=== PATIENT | female | born 1955 | race Caucasian/White ===

== ENCOUNTER → 2016-06-02 | Outpatient (REF) | payer MEDICARE, OTHER ==
[2016-06-02 16:24] LABS: BASOPHILS % (AUTO) 1 % (0-2); EOSINOPHILS # (AUTO) 0.3 10^3uL; EOSINOPHILS % (AUTO) 5 % (0-4); LYMPHOCYTES # (AUTO) 1.5 X10^3; MEAN CORPUSCULAR HEMOGLOBIN 27.9 PG (26.0-34.0); MEAN CORPUSCULAR HGB CONC 33.2 g/dL (31.0-37.0); MEAN CORPUSCULAR VOLUME 84 FL (80-100); MEAN PLATELET VOLUME 10.5 FL (6.0-9.5); MONOCYTES # (AUTO) 0.9 X10^3; MONOCYTES % (AUTO) 14 % (3-11); NEUTROPHILS # (AUTO) 3.6 X10^3; NEUTROPHILS % (AUTO) 56 % (51-67); PLATELET COUNT 218 10^3uL (150-450); WHITE BLOOD COUNT 6.37 10^3uL (4.0-11.0)
[2016-06-02 16:47] LABS: ALBUMIN 3.8 g/dL (3.4-5.0); ANION GAP 14.6 MEQ/L (3-15)
== END ==
LOC: LAB 15:37
PROVIDERS: ATTEND Family Medicine
DX: C34.31 Malignant neoplasm of lower lobe, right bronchus or lung (principal); R74.8 Abnormal levels of other serum enzymes
CPT/HCPCS: 80053; 82977; 85025

== ENCOUNTER → 2016-09-18 | Outpatient (CLI) | payer MEDICARE, OTHER ==
[~2016-09-18] MED LIST: ALB0.5V INH; ALBU8.5H2 INH; ASP81CT PO; ATOR10TA PO; BUDE1AMP INH; CA C1TAB66 PO; CITA40TA5 PO; CPR500T PO; FNT25TD TD; FOLI1TAB7 PO; FORM20VI IH; HYDR-3811 PO; IBUP-1096 PO; LEVO112T4 PO; LEVO750T39 PO; MAGIC MOUTHWASH PO; MIDO2.5T PO; MIRT15TA98 PO; OMEP20CA12 PO; ONDA-51 PO; ONDAN4ODT PO; PREG100C2 PO; PREG50CA2 PO; SCOP1PAT10 TD; SERT50TA PO; SUCR1ORA PO; TIZA4CAP6 PO
--- NOTE | 2016-09-18 11:44 | Diagnostic Imaging Report ---
INDICATION: Cough. Acute dyspnea. History of squamous cell carcinoma. Comparison with 05/02/2016. FINDINGS: There has been development of consolidated infiltrate in the right lower lobe both along the medial basilar segment and the posterior superior segment. Severe obstructive interstitial lung disease again noted bilaterally. The heart is upper limits of normal. Apical bullous emphysematous changes are present. No evidence of pneumothorax. No pleural effusion. Hilar fullness again noted on the right. IMPRESSION: 1. Severe obstructive interstitial lung disease with fullness in right hilum. 2. There does appear to be some acute infiltrate in the right lower lobe since previous exam. 3. No evidence of pneumothorax or pleural effusion. Dictated by: Dictated on workstation # [id number]
== END ==
LOC: RAD 09:49
PROVIDERS: ATTEND Family Medicine
DX: R06.02 Shortness of breath (principal); R05 Cough; C34.31 Malignant neoplasm of lower lobe, right bronchus or lung
CPT/HCPCS: 71020

== ENCOUNTER → 2016-09-18 | Outpatient (REF) | payer MEDICARE, OTHER ==
[2016-09-18 09:57] LABS: BASOPHILS % (AUTO) 0 % (0-2); EOSINOPHILS % (AUTO) 0 % (0-4); LYMPHOCYTES # (AUTO) 1.4 X10^3; MEAN CORPUSCULAR HEMOGLOBIN 27.4 PG (26.0-34.0); MEAN CORPUSCULAR HGB CONC 33.1 g/dL (31.0-37.0); MEAN CORPUSCULAR VOLUME 83 FL (80-100); MEAN PLATELET VOLUME 9.7 FL (6.0-9.5); MONOCYTES # (AUTO) 0.9 X10^3; MONOCYTES % (AUTO) 9 % (3-11); NEUTROPHILS # (AUTO) 8.5 X10^3; NEUTROPHILS % (AUTO) 78 % (51-67); PLATELET COUNT 288 10^3uL (150-450); WHITE BLOOD COUNT 10.87 10^3uL (4.0-11.0)
[2016-09-18 10:05] LABS: ALBUMIN 3.6 g/dL (3.4-5.0); CALCULATED IONIZED CALCIUM 4.1 mg/dL (3.8-4.6); TOTAL PROTEIN 6.8 g/dL (6.4-8.5)
[2016-09-18 10:06] LABS: ANION GAP 14.9 MEQ/L (3-15)
== END ==
LOC: LAB 09:51
PROVIDERS: ATTEND Family Medicine
DX: R06.02 Shortness of breath (principal); R05 Cough; C34.31 Malignant neoplasm of lower lobe, right bronchus or lung
CPT/HCPCS: 80053; 85025

== ENCOUNTER → 2016-09-25 | Outpatient (CLI) | payer MEDICARE, OTHER ==
--- NOTE | 2016-09-25 08:53 | Diagnostic Imaging Report ---
PROCEDURE: MR imaging of the brain with and without contrast. TECHNIQUE: Multiplanar, multisequence MR imaging of the brain was performed with and without contrast. INDICATION: Lung cancer. Correlation is made with a prior MRI from June 06, 2016. FINDINGS: There are prior operative changes of a left frontal craniotomy with a previous left frontal mass resection. When compared to the most recent examination, the resection cavity has decreased in size. There is T1 hyperintensity demonstrated within the resection cavity as well as some susceptibility on the gradient images. Allowing for the T1 hyperintensity, there is no evidence to suggest significant nodular enhancement within the resection cavity itself. There is again some linear enhancement about the margin to the prior resection and some mild dural thickening. A small degree of T2 hyperintense signal remains within the white matter about the prior resection cavity. There is no evidence of intracranial mass effect or shift. There is no hydrocephalus. No new intracranial lesion is evident on the postcontrast exam. No new regions of vasogenic edema demonstrated. The diffusion series demonstrates no evidence of restriction to suggest acute ischemia. There is no acute hemorrhage. There is no abnormal extra-axial fluid collection. Pituitary gland and pineal region are unremarkable. Posterior fossa remains unremarkable. Some trace mucosal thickening within the mastoids. There is small mucus retention cyst in left maxillary sinus. Orbital contents are unremarkable. Expected arterial and dural venous sinus flow voids appear preserved. IMPRESSION: 1. Previous operative changes of left frontal craniotomy with prior resection of a left frontal mass. The resection cavity is diminished in size when compared to the prior examination and there is also decreased T2 signal within the left frontal lobe compared to the preoperative MRI. Allowing for intrinsic T1 hyperintensity within the resection cavity which is believed to be related to postoperative blood products, there is no significant nodular enhancement. Only some mild linear enhancement about the margins is evident as well as some overlying dural thickening. Continued interval surveillance is recommended. 2. No new intracranial lesion is demonstrated. 3. No evidence of acute ischemia, hemorrhage, mass effect or hydrocephalus. Dictated by: Dictated on workstation # [id number]
== END ==
LOC: RAD 06:53
PROVIDERS: ATTEND Internal Medicine Hematology & Oncology
DX: C34.31 Malignant neoplasm of lower lobe, right bronchus or lung (principal); K21.0 Gastro-esophageal reflux disease with esophagitis
CPT/HCPCS: 70553; A9579